=== PATIENT | male | born 1960 | race Caucasian/White ===

== ENCOUNTER 2017-08-17 16:04 | Emergency (ER) | payer BC, OTHER ==
--- NOTE | 2017-08-17 16:56 | ER Document Report ---
ED Medical Screen (RME) - General Chief Complaint: Abdominal Pain Stated Complaint: GROIN PAIN Time Seen by Provider: 08/17/17 16:53 Notes: Patient states for approximately 1 year he has noticed some inguinal pain on and off. He has not seen a physician about this. Today he states he was lifting some heavy bags when he had severe pain in his left inguinal area. He states he used some pressure and felt the mass go away and now he feels somewhat better. He states he got nauseous but did not vomit. No problems with urination or bowel movements. Patient states he has had a previous umbilical hernia repaired. On exam it is noted that patient has some tenderness in inguinal canal but no obvious mass. He does have significant swelling of his scrotum and states this started in the last 8-10 months. There is no tenderness. Patient denies any leg swelling or abdominal swelling. He denies any history of chronic medical problems. TRAVEL OUTSIDE OF THE [place] IN LAST 30 DAYS: No - Related Data Allergies/Adverse Reactions: ciprofloxacin HCl [From Ciloxan] Allergy (Verified 08/17/17 16:10) codeine [Codeine] Allergy (Verified 08/17/17 16:10) Penicillins Allergy (Verified 08/17/17 16:10) pentazocine lactate [From Talwin] Allergy (Verified 08/17/17 16:10) Home Medications: Current Home Medications Atorvastatin Calcium 10 mg PO DAILY 08/17/17 [History] Past Medical History - Social History Chew tobacco use (# tins/day): No Frequency of alcohol use: Occasional Drug Abuse: None - Past Medical History Cardiac Medical History: Reports: Hx Hypercholesterolemia Renal/ Medical History: Denies: Hx Peritoneal Dialysis Past Surgical History: Reports: Hx Abdominal Surgery - hernia, Hx Oral Surgery, Hx Orthopedic Surgery - R knee - Immunizations Hx Diphtheria, Pertussis, Tetanus Vaccination: No Physical Exam - Vital signs Vitals: Temp Pulse Resp BP Pulse Ox 98.5 F 94 18 142/81 H 94 08/17/17 16:10 08/17/17 16:10 08/17/17 16:10 08/17/17 16:10 08/17/17 16:10 Course - Vital Signs Vital signs: Temp Pulse Resp BP Pulse Ox 98.5 F 94 18 142/81 H 94 08/17/17 16:10 08/17/17 16:10 08/17/17 16:10 08/17/17 16:10 08/17/17 16:10
[2017-08-17 17:25] LABS: ABSOLUTE BASOPHILS # (AUTO) 0.1 10^3/uL (0.0-0.2); ABSOLUTE EOSINOPHILS # (AUTO) 0.2 10^3/uL (0.0-0.6); ABSOLUTE LYMPHOCYTES (AUTO) 3.4 10^3/uL (0.5-4.7); ABSOLUTE MONOCYTES (AUTO) 0.7 10^3/uL (0.1-1.4); ABSOLUTE NEUT (AUTO) 6.2 10^3/uL (1.7-8.2); BASOPHILS % (AUTO) 0.7 % (0-2); EOSINOPHILS % (AUTO) 1.9 % (0-6); HEMATOCRIT 44.2 % (37.9-51.0); HEMOGLOBIN 15.8 g/dL (13.5-17.0); HGB HCT DIFFERENCE 3.2; LYMPHOCYTES % (AUTO) 32.3 % (13-45); MEAN CORPUSCULAR HEMOGLOBIN 32.6 pg (27.0-33.4); MEAN CORPUSCULAR HGB CONC 35.7 g/dL (32.0-36.0); MEAN CORPUSCULAR VOLUME 91 fl (80-97); MONOCYTES % (AUTO) 6.7 % (3-13); RED BLOOD COUNT 4.84 10^6/uL (4.35-5.55); RED CELL DISTRIBUTION WIDTH 13.4 % (11.5-14.0); SEGMENTED NEUTROPHILS % (AUTO) 58.4 % (42-78); WHITE BLOOD COUNT 10.6 10^3/uL (4.0-10.5)
[2017-08-17 17:27] LABS: APPEARANCE,URINE CLEAR; BILIRUBIN,URINE NEGATIVE (NEGATIVE); GLUCOSE, URINE NEGATIVE (NEGATIVE); KETONES,URINE NEGATIVE (NEGATIVE); LEUKOCYTE ESTERASE,URINE NEGATIVE (NEGATIVE); NITRITE,URINE NEGATIVE (NEGATIVE); PROTEIN,URINE NEGATIVE (NEGATIVE); URINE SPECIFIC GRAVITY 1.018; UROBILINOGEN,URINE NEGATIVE mg/dL (<2.0)
[2017-08-17 17:43] LABS: ALANINE AMINOTRANSFERASE 49 U/L (21-72); ALBUMIN 4.5 g/dL (3.5-5.0); ALKALINE PHOSPHATASE 54 U/L (38-126); ANION GAP 12 (5-19); ASPARTATE AMINO TRANSFERASE 27 U/L (17-59); BILIRUBIN,DIRECT 0.3 mg/dL (0.0-0.4); BILIRUBIN,TOTAL 0.4 mg/dL (0.2-1.3); BLOOD UREA NITROGEN 18 mg/dL (7-20); CALCIUM 9.8 mg/dL (8.4-10.2); CARBON DIOXIDE 25 mmol/L (22-30); CHLORIDE 106 mmol/L (98-107); CREATININE RESULT 0.79 mg/dL (0.52-1.25); GLUCOSE 111 mg/dL (75-110); SODIUM 142.8 mmol/L (137-145); TOTAL PROTEIN 7.2 g/dL (6.3-8.2)
--- NOTE | 2017-08-17 18:00 | RADIOLOGY REPORT (SQ) ---
EXAM DESCRIPTION: U/S SCROTUM W/DOPPLER COMPLETED DATE/TIME: 08/17/2017 5:47 pm REASON FOR STUDY: swelling/pain COMPARISON: None. TECHNIQUE: Static and realtime mendoza scale imaging of the scrotum and testes. Selected color Doppler and spectral images recorded to document blood flow. LIMITATIONS: None. FINDINGS: RIGHT: TESTICLE: Normal size. Normal echotexture. Normal blood flow. No mass. EPIDIDYMIS: Normal. HYDROCELE OR VARICOCELE: Large hydrocele. HERNIA OR EXTRA-TESTICULAR MASS: No. OTHER: No other significant finding. LEFT: TESTICLE: Normal size. Normal echotexture. Normal blood flow. No mass. EPIDIDYMIS: Normal. HYDROCELE OR VARICOCELE: Large hydrocele. HERNIA OR EXTRA-TESTICULAR MASS: No. OTHER: No other significant finding. IMPRESSION: No torsion. No testicular masses. Large hydroceles. TECHNICAL DOCUMENTATION: JOB ID: [id number] [employer]- All Rights Reserved
[2017-08-17 18:07] VITALS: BP 118/64
--- NOTE | 2017-08-17 19:02 | ER Document Report ---
ED General - General Chief Complaint: Abdominal Pain Stated Complaint: GROIN PAIN Time Seen by Provider: 08/17/17 16:53 Notes: Patient is a 57-year-old male who presents with left groin pain that has now resolved. Patient is a history of a left inguinal hernia, states generally this is not a problem itself reduces easily. States today he was in a store and felt a hernia pop into his scrotum but he was unable to reduce it. States he gradually developed a severe, constant, aching pain to the area. Nothing improves or worsen the pain. States it got progressively worse until it spontaneously reduced with gentle pressure here in the emergency department. He denies a history of similar episodes in the past. At time of my assessment he is currently pain-free. He has not seen his primary doctor regarding today' s concerns. TRAVEL OUTSIDE OF THE [place] IN LAST 30 DAYS: No - Related Data Allergies/Adverse Reactions: ciprofloxacin HCl [From Ciloxan] Allergy (Verified 08/17/17 16:10) codeine [Codeine] Allergy (Verified 08/17/17 16:10) Penicillins Allergy (Verified 08/17/17 16:10) pentazocine lactate [From Talwin] Allergy (Verified 08/17/17 16:10) Home Medications: Current Home Medications Atorvastatin Calcium 10 mg PO DAILY 08/17/17 [History] Past Medical History - General Information source: Patient - Social History Smoking Status: Current Some Day Smoker Chew tobacco use (# tins/day): No Frequency of alcohol use: Occasional Drug Abuse: None Lives with: Spouse/Significant other Family History: Reviewed & Not Pertinent - Past Medical History Cardiac Medical History: Reports: Hx Hypercholesterolemia Renal/ Medical History: Denies: Hx Peritoneal Dialysis Past Surgical History: Reports: Hx Abdominal Surgery - hernia, Hx Oral Surgery, Hx Orthopedic Surgery - R knee - Immunizations Hx Diphtheria, Pertussis, Tetanus Vaccination: No Review of Systems - Review of Systems Notes: Constitutional: Negative for fever. HENT: Negative for sore throat. Eyes: Negative for visual changes. Cardiovascular: Negative for chest pain. Respiratory: Negative for shortness of breath. Gastrointestinal: Negative for abdominal pain, vomiting or diarrhea. Genitourinary: Positive for left groin pain now resolved Musculoskeletal: Negative for back pain. Skin: Negative for rash. Neurological: Negative for headaches, weakness or numbness. 10 point ROS negative except as marked above and in HPI. Physical Exam - Vital signs Vitals: Temp Pulse Resp BP Pulse Ox 98.5 F 94 18 142/81 H 94 08/17/17 16:10 08/17/17 16:10 08/17/17 16:10 08/17/17 16:10 08/17/17 16:10 Interpretation: Normal Notes: PHYSICAL EXAMINATION: GENERAL: Well-appearing, well-nourished and in no acute distress. HEAD: Atraumatic, normocephalic. EYES: Pupils equal round and reactive to light, extraocular movements intact, sclera anicteric, conjunctiva are normal. ENT: nares patent, oropharynx clear without exudates. Moist mucous membranes. NECK: Normal range of motion, supple without lymphadenopathy LUNGS: Breath sounds clear to auscultation bilaterally and equal. No wheezes rales or rhonchi. HEART: Regular rate and rhythm without murmurs ABDOMEN: Soft, nontender, normoactive bowel sounds. No guarding, no rebound. No masses appreciated. : Testicles are mildly swollen bilaterally. No appreciable inguinal hernia bilaterally. There is a inguinal canal defect on the left EXTREMITIES: Normal range of motion, no pitting or edema. No cyanosis. NEUROLOGICAL: No focal neurological deficits. Moves all extremities spontaneously and on command. PSYCH: Normal mood, normal affect. SKIN: Warm, Dry, normal turgor, no rashes or lesions noted. Course - Re-evaluation Re-evalutation: 08/17/17 18:57 Patient presents with a left inguinal hernia that self reduced prior to my assessment. Patient did receive a scrotal ultrasound but states that at the time of obtaining the ultrasound he had already been able to reduce the hernia on his own while waiting. On assessment he has no remaining appreciable hernia. He does have bilateral hydroceles on exam and on ultrasound. Given that patient does not actively have an incarcerated hernia at this time I do not feel there is any indication for emergent surgical consultation. Remainder of patient's laboratories that were obtained in triage are reviewed and noted to be unremarkable. I have encouraged the patient to follow-up with a surgeon at his earliest ability given his episode of probable incarceration today and the need for surgical repair. I also reviewed with him that if his symptoms recur he is to return immediately to the emergency department and have explained to him the complications that could result in delayed presentation. He is in agreement and will follow up with the surgeon at his earliest ability. - Vital Signs Vital signs: Temp Pulse Resp BP Pulse Ox 97.3 F 69 16 118/64 97 08/17/17 18:05 08/17/17 18:05 08/17/17 18:05 08/17/17 18:05 08/17/17 18:05 - Laboratory Result Diagrams: 08/17/17 17:03 08/17/17 17:03 Laboratory results interpreted by me: 08/17/17 08/17/17 08/17/17 17:03 17:03 17:03 WBC 10.6 H Plt Count 146 L Glucose 111 H Urine Blood SMALL H - Diagnostic Test Radiology reviewed: Reports reviewed Discharge - Discharge Clinical Impression: Left inguinal hernia, Bilateral hydrocele Condition: Good Disposition: HOME, SELF-CARE Additional Instructions: You had an episode of an incarcerated inguinal hernia today. This means that a small portion of your bowel got stuck into your scrotum. You were able to get to go back inside your abdomen but this may recur again in the future and cause you further complications. I advised that you follow-up with a surgeon and have this managed surgically. If you have recurrence of the pain you experience today please return to the emergency department immediately. Please also return if you develop fever, vomiting, or any other symptoms that are worrisome to you. You also have fluid around both of your testicles called a hydrocele. If this becomes bothersome, you can follow-up with urologist as needed. Referrals: STELLA WATSON MD [ACTIVE STAFF] - Follow up in 3-5 days
== END 2017-08-17 19:51 | disposition home or self-care (01) ==
LOC: ER 16:04
DX: K40.90 Unilateral inguinal hernia, without obstruction or gangrene, not specified as recurrent (principal); N43.3 Hydrocele, unspecified; F17.200 Nicotine dependence, unspecified, uncomplicated; Z88.1 Allergy status to other antibiotic agents; Z88.5 Allergy status to narcotic agent; Z88.0 Allergy status to penicillin
CPT/HCPCS: 36415; 76870; 80053; 81001; 85025; 93976; 99284

== ENCOUNTER 2018-04-27 06:24 | Day surgery (SDC) | payer OTHER ==
[~2018-04-27 06:24] MED LIST: KETOROLAC TROMETHAMINE 0.45% 4 DROP/0.4 ML DROPERETTE OS PRN
[2018-04-27] MEDS: TROPICAMIDE 1% OPH SOLN 3 ML OS PRN ×3 (06:48→07:10)
[2018-04-27] MEDS: CYCLOPENTOLATE 0.2%/PHENYLEPHRINE 1% OPH SOLN 2 ML OS PRN ×3 (06:48→07:10)
[2018-04-27] MEDS: TETRACAINE HCL 0.5% OPH SOLN 2 ML OS PRN ×3 (06:48→07:27)
[2018-04-27] MEDS: BESIFLOXACIN HCL 0.6% OPH SUSP 5 ML BOTTLE OS PRN ×4 (06:49→07:57)
[2018-04-27] MEDS ORDERED: CHONDR SU A NA/HYALUR INTRAOC KIT (SURGICARE) ONE (06:51)
[2018-04-27] MEDS ORDERED: LIDOCAINE 1% INJ-PF (10 MG/ML) 30 ML SDV ONE (06:51)
[2018-04-27] MEDS ORDERED: EPINEPHRINE INJ/PF 1 MG/1 ML AMPULE ONE (06:51)
[2018-04-27] MEDS ORDERED: MIDAZOLAM 2 MG/2 ML INJ ONE ×2 (07:00→07:41)
[2018-04-27] MEDS ORDERED: FENTANYL CITRATE INJ/PF 100 MCG/2 ML AMPUL ONE (07:00)
--- NOTE | 2018-04-27 20:29 | [facility] DISCHARGE SUMMARY E ---
[facility] Discharge Summary NAME: JEROD MATTHEWS AGE: 57Y ADMITTED: 04/27/2018 DISCHARGED: 04/27/2018 FINAL DIAGNOSIS: Cataract, left eye. HOSPITAL COURSE: This is a 57-year-old male who underwent cataract extraction of the left eye. He underwent surgery because he was having difficulty seeing to drive at night, with increased glare from headlights. He should be on a regular diet. No bending at his waist, no heavy lifting. He should use Besivance, Ilevro and Durezol at 3:00 p.m. and 8:00 p.m. Sleep with a rigid shield. I will see him for a 1-day postoperative tomorrow. DICTATING PHYSICIAN: RILEY WILCOX M.D. [id number] PHY#: [id number] ID: [id number] JOB#: [id number] ACCT: [id number] cc:RILEY WILCOX M.D. >
--- NOTE | 2018-04-27 20:30 | [facility] OPERATIVE REPORT E ---
[facility] Operative Report NAME: JEROD MATTHEWS AGE: 57Y DATE OF SURGERY: 04/27/2018 ROOM: PREOPERATIVE DIAGNOSIS: CATARACT, LEFT EYE. POSTOPERATIVE DIAGNOSIS: CATARACT, LEFT EYE. OPERATION: Cataract extraction with insertion of an IOL of the left eye. SURGEON: RILEY WILCOX M.D. ANESTHESIA: Topical. PROCEDURE: After obtaining appropriate consent, the patient's left eye was prepped and draped in sterile fashion as well as the surgeon in a sterile manner and cataract surgery was started. First a paracentesis blade was used to make a side-port incision. Viscoelastic was used to inflate the anterior chamber. Next a 2.4 mm incision was made with a 2.4 mm blade, clear corneal temporally. A continuous capsulorrhexis was made using a cystotome and Utrata forceps. Following this hydrodissection was carried out to make the lens fully loose and mobile and it was rotated 90 degrees. Following this, a [id number] technique was used to phacoemulsify the lens with a CDE of 5.25. The remaining cortex was removed with irrigation/aspiration. Provisc was instilled into the capsular bag to inflate the bag. A SN60WF, 22.5 diopter lens was placed. The remaining viscoelastic material was removed with irrigation/aspiration. Following this, the incision was found to be watertight. Besivance was instilled into the eye and a protective shield was placed over the eye. The patient returned to the postoperative recovery in stable condition. DICTATING PHYSICIAN: RILEY WILCOX M.D. [id number] PHY#: [id number] ID: [id number] JOB#: [id number] ACCT: [id number] cc:RILEY WILCOX M.D. >
== END 2018-04-27 08:35 | disposition home or self-care (01) ==
LOC: SC 06:24
PROVIDERS: ATTEND Internal Medicine
DX: H25.813 Combined forms of age-related cataract, bilateral (principal); H40.013 Open angle with borderline findings, low risk, bilateral; E78.00 Pure hypercholesterolemia, unspecified; F17.210 Nicotine dependence, cigarettes, uncomplicated; Z88.0 Allergy status to penicillin; Z88.5 Allergy status to narcotic agent; Z88.8 Allergy status to other drugs, medicaments and biological substances; Z79.899 Other long term (current) drug therapy
CPT/HCPCS: 66984; V2632; J2250; J3490 ×2; J0171; J3010; 142

== ENCOUNTER → 2019-10-15 | Outpatient (CLI) | payer OTHER ==
--- NOTE | 2019-10-15 14:26 | RADIOLOGY REPORT (SQ) ---
EXAM DESCRIPTION: CT LUNG CANCER SCREENING COMPLETED DATE/TIME: 10/15/2019 2:08 pm REASON FOR STUDY: SMOKER Has the patient had a Chest CT scan within the past year? N Was the patient offered tobacco cessation counseling? Y Was the patient engaged in shared decision making for this test? Y Does the patient have signs or symptoms of Lung Cancer? N Is the patient a smoker? Y How many pack years? 40 How many years since quitting smoking? 0 Patients age: 59 COMPARISON: None. TECHNIQUE: Low Dose CT scan performed of the chest without intravenous contrast for purposes of scre ening for lung cancer. Images reviewed with lung, soft tissue and bone windows. Reconstructed coron al and sagittal MPR images reviewed. All images stored on PACS. All CT scanners at this facility use dose modulation, iterative reconstruction, and/or weight based d osing when appropriate to reduce radiation dose to as low as reasonably achievable (ALARA). [facility]: Dose Right [facility]: CareDose [facility]: Dose Right [facility]: Teradose 4D [facility]: [employer] RADIATION DOSE: CT Rad equipment meets quality standard of care and radiation dose reduction techniq ues were employed. CTDIvol: NaN mGy. DLP: 0 mGy-cm. mGy. . LIMITATIONS: None FINDINGS: LUNGS AND PLEURA: No masses or nodules. No pleural effusions or calcifications. No pne umothorax. No scarring or interstitial changes. HILAR AND MEDIASTINAL STRUCTURES: No identified masses. No abnormal nodes. HEART AND VASCULAR STRUCTURES: No aortic aneurysm. No pericardial effusion. No cardiac devices. CORONARY ARTERY CALCIFICATIONS: No significant calcifications. UPPER ABDOMEN, THYROID, BONES, OTHER SOFT TISSUES: No significant findings. IMPRESSION: NO SIGNIFICANT FINDING IN THE LUNGS ON NON-CONTRASTED CHEST CT. NO OTHER CLINICALLY SIGNIFICANT/POTENTIALLY CLINICALLY SIGNIFICANT FINDINGS LUNGRADS: LUNGRADS: 1 NEGATIVE. NO NODULES, OR DEFINITELY BENIGN NODULES MODIFIER: NONE RECOMMENDATION: Continue annual screening with LDCT in 12 months. COMMENT: CRITERIA: No lung nodules. Nodules with specific calcifications: Complete, central, popcorn, concentric rings and fat containin g nodules. TECHNICAL DOCUMENTATION: JOB ID: [id number] Quality ID # [id number]: Final reports with documentation of one or more dose reduction techniques (e.g., Au tomated exposure control, adjustment of the mA and/or kV according to patient size, use of iterative reconstruction technique) 2010 [facility] Radiology Reading location - IP/workstation name: [email or web address]
== END ==
LOC: RAD 13:31
PROVIDERS: ATTEND Clinical Nurse Specialist Adult Health
DX: F17.200 Nicotine dependence, unspecified, uncomplicated (principal)
CPT/HCPCS: G0297